=== PATIENT | male | born 1955 | race African-American/Black ===

== ENCOUNTER 2017-07-04 10:21 | Emergency (ER) | payer OTHER ==
[~2017-07-04] VITALS: Ht 182.9 cm; Wt 95.7 kg
[~2017-07-04 10:21] MED LIST: CALCIUM 500 +1 EAC5 PO; CRESTOR10 MG PO; CYCLOBENZAPRINE10 MG PO; FISH OIL 1,0001 EAC5 PO; GEMFIBROZIL 60600 MG PO; GLUCOPHAGE1000 MG PO; HYDROCODON-ACE1 EAC7 PO; JANUVIA25 MG PO; MAGNESIUM400 MG PO; MULTIVITAMINS; RELAFEN750 MG PO; VITAMIN B-12100 MC1 PO; VITAMIN C 250250 MG
[2017-07-04] MEDS ORDERED: LIPITOR 20 MG T20 M1 PO (10:37)
[2017-07-04] MEDS ORDERED: TRULICITY1.5 MG/0.5 SUBQ (10:39)
[2017-07-04] MEDS ORDERED: ULTRAM 50MG TAB50 MG PO (11:50)
[2017-07-04] MEDS ORDERED: NORFLEX100 MG PO (11:50)
[2017-07-04] MEDS ORDERED: NAPROSYN500 MG PO (11:50)
[2017-07-04 12:10] VITALS: BP 132/76
== END 2017-07-04 12:11 | disposition home or self-care (01) ==
LOC: ER 10:21
DX: S29.012A Strain of muscle and tendon of back wall of thorax, initial encounter (principal); S46.812A Strain of other muscles, fascia and tendons at shoulder and upper arm level, left arm, initial encounter; V47.5XXA Car driver injured in collision with fixed or stationary object in traffic accident, initial encounter; Y93.I9 Activity, other involving external motion; Y92.89 Other specified places as the place of occurrence of the external cause; Y99.8 Other external cause status

== ENCOUNTER 2021-07-12 19:32 | Emergency (ER) | payer BC ==
[~2021-07-12 19:32] MED LIST changes: +LIPITOR 20 MG T20 M1 PO; +NAPROSYN500 MG PO; +NORFLEX100 MG PO; +TRULICITY1.5 MG/0.5 SUBQ; +ULTRAM 50MG TAB50 MG PO
[2021-07-12 19:36] VITALS: BP 121/59
== END 2021-07-12 20:30 | disposition home or self-care (01) ==
LOC: ER 19:32
DX: R19.7 Diarrhea, unspecified (principal); Z20.822 Contact with and (suspected) exposure to COVID-19; Z98.890 Other specified postprocedural states; Z79.84 Long term (current) use of oral hypoglycemic drugs; Z79.899 Other long term (current) drug therapy